=== PATIENT | male | born 1960 | race Caucasian/White ===

== ENCOUNTER 2016-04-23 10:14 | Day surgery (SDC) | payer OTHER ==
[~2016-04-23] VITALS: Ht 172.7 cm; Wt 77.0 kg
[~2016-04-23 10:14] MED LIST: ANTIVERT25 MG PO; CARVEDILOL25 MG PO; DIOVAN320 MG PO; KEPPRA500 MG PO; LIDODERM 5% P1 PATCH TD; LISINOPRIL40 MG PO; OMEPRAZOLE20 MG PO; PROCARDIA XL30 MG PO; SENEXON-S TABL1 EACH PO; SENNA-DOCUSATE1 EAC1 PO; STRESS FORMULA1 EAC9 PO; TRAZODONE HCL150 MG PO; TUMS500 MG PO
[2016-04-23 10:35] VITALS: BP 122/68
[2016-04-23 10:58] LABS: EOSINOPHIL (%) 1.5 % (0-5); EOSINOPHIL COUNT 0.1 K/uL (0-0.3); HEMATOCRIT 43.3 % (38.0-50.0); IMMATURE GRANULOCYTE (%) 0.2 % (0.0-0.7); IMMATURE GRANULOCYTE COUNT 0.1 K/uL; LYMPHOCYTE COUNT 1.1 K/uL (1.0-2.8); MCH 29.9 PG (29.0-34.0); MCHC 33.7 G/DL (30.0-36.0); MCV 88.7 FL (86-99); MEAN PLAT.VOLUME 9.5 uM^3 (9.0-12.4); MONOCYTE (%) 7.8 % (3-12); MONOCYTE COUNT 0.5 K/uL (0-0.8); NEUTROPHIL (%) 70.9 % (45-76); NEUTROPHIL COUNT 4.2 K/uL (1.8-6.4); PLATELET COUNT 194 K/uL (156-360); RBC DIS.WIDTH-CV 12.8 % (11.8-14.6); RED BLOOD COUNT 4.88 M/uL (4.00-5.50); WHITE BLOOD COUNT 5.9 K/uL (4.1-10.2)
[2016-04-23 11:07] LABS: INTER. NORMALIZED RATIO 1.1; PROTHROMBIN TIME 11.4 (9.2-11.2)
[2016-04-23 11:08] LABS: CHLORIDE 106 mEq/L (99-109); SODIUM 139 mEq/L (136-147)
[2016-04-23 11:11] LABS: GLUCOSE 94 mg/dL (70-99)
[2016-04-23 11:12] LABS: ANION GAP 9 MEQ/L (2-14)
[2016-04-23 11:13] LABS: TOTAL BILIRUBIN 0.4 mg/dL (0.0-1.0)
[2016-04-23 11:14] LABS: ALKALINE PHOSPHATASE 80 IU/L (3-129); GFR ESTIMATE (CALCULATED) > 59 mL/min/
[2016-04-23 11:15] LABS: UREA NITROGEN (BUN) 16 mg/dL (9-23)
[2016-04-23] MEDS ORDERED: NORCO 5/3251 TABLET PO (14:19)
[2016-04-23] MEDS ORDERED: COLACE100 MG PO (14:19)
[2016-04-23 16:30] VITALS: BP 162/102
[2016-04-23 17:20] VITALS: BP 148/94
[2016-04-23 18:50] VITALS: BP 143/93
[2016-04-23 19:25] VITALS: BP 156/94
== END 2016-04-23 19:25 | disposition home or self-care (01) ==
LOC: SDC 10:14
PROVIDERS: Thoracic Surgery (Cardiothoracic Vascular Surgery)
PROC: 0YQ50ZZ Repair Right Inguinal Region, Open Approach (ICD-10-PCS; principal; 2016-04-23)
DX: K40.30 Unilateral inguinal hernia, with obstruction, without gangrene, not specified as recurrent (principal); Z86.73 Personal history of transient ischemic attack (TIA), and cerebral infarction without residual deficits; R01.1 Cardiac murmur, unspecified; I10 Essential (primary) hypertension; K21.9 Gastro-esophageal reflux disease without esophagitis
CPT/HCPCS: 80053; 85025; 85610; C1781; J0330; J0690; J0696; J1100; J1170; J2405; J2710; J3010; J7050